=== PATIENT | female | born 1985 | race Hispanic/Latino ===

== ENCOUNTER 2016-10-22 17:43 | Emergency (ER) | payer OTHER ==
[~2016-10-22] VITALS: Ht 152.4 cm; Wt 68.0 kg
[2016-10-22] MEDS ORDERED: NORCO 5-325 TA1 EACH PO (21:27)
== END 2016-10-22 22:21 | disposition home or self-care (01) ==
LOC: ED 17:43
DX: N83.202 Unspecified ovarian cyst, left side (principal); Z88.5 Allergy status to narcotic agent
CPT/HCPCS: 74177; 80053; 81001; 83690; 84703; 85025; 96361; 96374; 96375; 99284; J1170; J2405; J7030; Q9967